=== PATIENT | female | born 1955 | race Caucasian/White ===

== ENCOUNTER → 2017-01-18 | Day surgery (SDC) | payer OTHER ==
[~2017-01-18] MED LIST: ACETAMINOPHEN PO; AMOXICILLIN875 MG PO; PRAVACHOL20 MG PO; PROTONIX PO; VITAMIN D250000 UNIT; [UNRECOGNIZED DRUG - REMARK] PO; [UNRECOGNIZED DRUG - REMARK] PO
--- NOTE | ~2017-01-18 | OR ---
Unit #: [id number] #: [id number] Patient: JAVIER BRODY [id number] [address] [address] [id number] O MR#: [id number] NAME: JAVIER BRODY ROOM: Date of Procedure: 01/18/2017 Admission Date: 01/18/2017 Surgeon: Slade Lux M.D. : 1955 Attending Physician: Slade Lux M.D. Referring Physician: Slade Lux M.D. Primary Care Physician: Dena Danielle M.D. OPERATIVE REPORT PRIMARY CARE PHYSICIAN Dena Danielle M.D. PREOPERATIVE DIAGNOSIS Colorectal cancer screening in an average-risk patient. PROCEDURE PERFORMED Colonoscopy up to cecum and terminal ileum with excellent preparation and good visualization. POSTOPERATIVE DIAGNOSES Completely normal examination up to cecum. The quality of the prep was excellent. The patient did not have any polyps nor any diverticula or hemorrhoids. RECOMMENDATIONS Repeat colonoscopy in 10 years. SEDATION USED MAC. DESCRIPTION OF PROCEDURE Following detailed explanation of the potential risks and complications of a colonoscopy, namely perforation, bleeding, and complication related to sedation, the patient was brought to GI lab and laid in the left lateral decubitus position. A digital rectal examination was performed, which was normal. Lubricated tip of the Olympus video colonoscope was inserted through the anus and advanced under direct vision. The scope was advanced past rectosigmoid into descending colon. No diverticula were seen in this area. The scope tip was then navigated all the way up to cecum with visualization of the ileocecal valve and the appendiceal orifice. Preparation was excellent with good visualization and photodocumentation was obtained. Last several inches of the terminal ileum were also visualized after intubation of the ileocecal valve and appeared normal. Successive segments of the colonic mucosa were examined upon withdrawal and appeared unremarkable. There being no polyps, mass lesions, AVMs, or diverticula. The patient did not have any hemorrhoids at anal verge. The scope was then withdrawn and the patient returned to recovery area. She tolerated the procedure without any postprocedure complications. Dictated by... Unit #: [id number] #: [id number] Patient: JAVIER BRODY Gilson Corcoran/gaviota TD: 01/19/2017 01:44 JOB #: [id number] CC: Dena Danielle M.D. OPERATIVE REPORT Page 1 of 1 X Slade Lux MD PROCEDURE OPERATIVE NOTE
== END | disposition home or self-care (01) ==
LOC: COPS 09:32
DX: Z12.11 Encounter for screening for malignant neoplasm of colon (principal); K21.9 Gastro-esophageal reflux disease without esophagitis; J44.9 Chronic obstructive pulmonary disease, unspecified; E78.5 Hyperlipidemia, unspecified; F17.200 Nicotine dependence, unspecified, uncomplicated; E66.01 Morbid (severe) obesity due to excess calories; Z68.44 Body mass index [BMI] 60.0-69.9, adult; Z88.2 Allergy status to sulfonamides; Z90.710 Acquired absence of both cervix and uterus